=== PATIENT | female | born 1990 | race American Indian/Alaskan Native ===

== ENCOUNTER 2020-01-01 19:39 | Outpatient (CLI) | payer MEDICAID ==
[2020-01-01 20:06] VITALS: BP 99/62
[2020-01-01 20:46] LABS: Bacteria,Urine 1+ /HPF (Negative); Bilirubin,Urine NEG (Negative); Blood,Urine NEG (Negative); Color,Urine Straw (Yellow); Protein,Urine <15 mg/dL mg/dL (Negative); Urobilinogen,Urine < 2.0 mg/dL (<2.0)
== END 2020-01-01 21:12 | disposition home or self-care (01) ==
LOC: TRG 19:39 → APU 19:52 → TRG 21:12
PROVIDERS: ATTEND Obstetrics & Gynecology
DX: O26.892 Other specified pregnancy related conditions, second trimester (principal); M54.5 Low back pain; Z3A.22 22 weeks gestation of pregnancy
CPT/HCPCS: 59025; 81001